=== PATIENT | female | born 1960 | race Caucasian/White ===

== ENCOUNTER 2022-08-01 06:44 | Outpatient (REF) | payer OTHER, SELFPAY ==
[2022-08-01 11:41] LABS: MANUAL DIFF FLAG NO
[2022-08-01 11:51] LABS: Basophils Absolute Auto 0.1 X10*3/uL (0.0-0.2); Basophils Percent Auto 0.7 % (0-2); Eosinophils Absolute Auto 0.1 X10*3/uL (0.0-0.4); Eosinophils Percent Auto 1.9 % (0-4); Hematocrit 43.7 % (37.0-47.0); Hemoglobin 14.3 g/dl (12.0-16.0); Imm Gran Abs Auto 0.02 X10*3/uL (0.00-0.03); Imm Gran Pct Auto 0.3 % (0.0-0.4); Lymphocytes Absolute Auto 2.4 X10*3/uL (1.2-4.9); Lymphocytes Percent Auto 36.3 % (20-40); Mean Corpuscular HGB Conc 32.7 g/dl (31.0-35.0); Mean Corpuscular Hemoglobin 30.8 pg (27.0-33.0); Mean Platelet Volume 11.1 fL (9.4-12.3); Monocytes Absolute Auto 0.6 X10*3/uL (0.1-1.2); Monocytes Percent Auto 8.4 % (2-11); Neutrophils Absolute Auto 3.5 x10*3/uL (2.0-8.3); Neutrophils Percent Auto 52.4 % (45-73); Platelet Count 255 X10*3/uL (160-400); Red Blood Count 4.65 X10*6/uL (4.20-5.50); Red Cell Distribution Width 12.1 % (11.0-16.0); White Blood Count 6.7 X10*3/uL (4.8-10.8)
[2022-08-01 12:19] LABS: Alanine Aminotransferase 60 U/L (0-31); Albumin Level 4.2 g/dL (3.5-5.0); Alkaline Phosphatase 56 U/L (39-117); Anion Gap 10 (12-20); Aspartate Amino Transferase 41 U/L (5-31); Bilirubin Total 0.8 mg/dL (0.0-1.0); Blood Urea Nitrogen 16 mg/dL (9-16); Calcium 9.9 mg/dL (8.4-10.2); Carbon Dioxide 30 mmol/L (22-29); Chloride 105 mmol/L (96-108); Cholesterol 263 mg/dL; Estimated Glomerular Filt Rate > 60; Glucose Fasting 99 mg/dL (60-99); HDL Cholesterol 66 mg/dL; LDL Cholesterol Calculated 166 mg/dl; Potassium 4.2 mmol/L (3.3-5.1); Sodium 141 mmol/L (135-145); Triglycerides 155 mg/dL
[2022-08-01 12:38] LABS: TSH reflex Free T4 2.36 uIU/mL (0.32-4.0); Vitamin D 25-OH Total 25.6 ng/mL (>30)
== END 2022-08-01 06:45 | disposition home or self-care (01) ==
LOC: HO.HMGCLDS 06:44
PROVIDERS: PCP Internal Medicine; Visit Provider Internal Medicine
DX: Z00.00 Encounter for general adult medical examination without abnormal findings (principal); E55.9 Vitamin D deficiency, unspecified; K21.9 Gastro-esophageal reflux disease without esophagitis
CPT/HCPCS: 36415; 80053; 80061; 82306; 84443; 85025

== ENCOUNTER 2022-11-05 14:57 | Outpatient (AMB) | payer OTHER, SELFPAY ==
--- NOTE | 2022-11-05 15:04 | A.OFFVIS_ITS ---
Intake Vital Signs 11/05/22 15:05 Height 5 ft 9.5 in Weight 156 lb 8.451 oz BMI 22.8 BP 142/79 H Blood Pressure Location Lt brachial Position Sitting Pulse 73 Intake Visit Reasons: COLO screening Intake Note: Mary presents in the office as a colo screening. CC: Just due for a colonoscopy -- no concerns at this time. 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 female here today for pre c olonoscopy screening.? Patient was sent to us by her PCP.? Last colonoscopy in January of 2012. Normal colonoscopy no polyps. Patient denies any gastrointestinal symptoms in the past or at present.? Denies any personal or family history of gastrointestinal disease, colon polyps, or cancer.? Denies history of difficulty with sedation or anesthesia in the past.? Negative for history of sleep apnea.? Denies any history of cardiac, renal, pulmonary, or hepatic disease.? Elevated liver enzymes. PCP is sending patient for repeat blood work.? No history of infectious? diseases like hepatitis A, B, C, HIV or tuberculosis.? Patient is not on any anticoagulation therapy. [facility] Medical History (Updated 11/05/22 @ 15:37 by BENNIE Dixon) Hx of screening mammography Arm pain, right GERD (gastroesophageal reflux disease) Annual physical exam Normal pelvic exam Surgical History (Updated 11/05/22 @ 15:35 by BENNIE Dixon) Hx of colonoscopy Family History Father Hypertension Liver cancer Mother Hypertension Social History Housing: House Patient Tobacco Use Status: Former Tobacco user Quit Date: 1992 e-Cigarette/Vaping Use: Never Used service: No Current occupational status: employed Cognitive needs: No Hearing needs: No Vision needs: No Review of Systems Const Denies weight gain and Denies weight loss ENT Reports no additional complaints, Denies dysphagia and Denies odynophagia Card Reports no additional complaints Resp Reports no additional complaints GI Denies abdominal pain, Denies belching, Denies melena, Denies bloating, Denies change in bowel habits, Denies dysphagia, Denies excessive flatus, Denies dyspepsia, Denies heartburn, Denies diarrhea, Denies loose stools, Denies nausea, Denies odynophagia and Denies vomiting Musc Reports no additional complaints Neuro Reports no additional complaints Psych Reports no additional complaints Endo Reports no additional complaints Physical Exam Vital Signs: Last Vital Signs Pulse 73 11/05/22 15:05 BP 142/79 H 11/05/22 15:05 BMI result Body Mass Index 22.8 Const General: healthy appearing, no acute distress and well developed Nutritional Appearance: well nourished Orientation/consciousness: patient oriented x3 HEENT Head: Yes normal to inspection, Yes normocephalic and Yes atraumatic Face and sinus: Yes normal facial exam Mouth: Normal oral and palatal mucosa present Throat: Yes posterior oropharynx normal, Yes tonsils normal and Yes uvula midline Eyes General: appearance normal, both eyes and all related structures Neck Neck: Yes normal visual inspection, Yes full ROM and Yes trachea midline Thyroid: Thyroid normal Resp Effort & Inspection: normal respiratory effort, able to speak in complete sentences, no tracheal deviation and symmetric chest movement Auscultation: clear to auscultation bilaterally Cardio Rate: regular rate Heart sounds: S1 normal heart sound present and S2 normal heart sound present GI Inspection: Yes normal to inspection and No distended Palpation (GI): Soft to palpation, not firm, nontender and No hepatosplenomegaly present Auscultation: normal bowel sounds General: Yes no CVA tenderness Back/Spine/Pelvis Back: no CVA tenderness Skin General skin exam: elasticity normal, turgor normal and dry skin Neuro General: patient oriented x3 Psych Appearance: grossly normal Mental Status: mental status grossly normal Assessment & Plan Assessment & Plan (1) GERD (gastroesophageal reflux disease): Code(s): K21.9 - Gastro-esophageal reflux disease without esophagitis Qualifiers: Esophagitis presence: esophagitis presence not specified Qualified Code(s): K21.9 - Gastro-esophageal reflux disease without esophagitis Plan: Patient will avoid dietary triggers in late night snacking. Staying upright for minimum 3 hours after meals discussed with patient. (2) Transaminitis: Code(s): R74.01 - Elevation of levels of liver transaminase levels Plan: History of transaminitis, repeat blood work ordered for November. (3) Screen for colon cancer: Code(s): Z12.11 - Encounter for screening for malignant neoplasm of colon Plan: Patient denies any GI, cardiac or respiratory symptoms.? Denies any issues with anesthesia in the past.? Denies any history of sleep apnea.? No history infectious diseases in the past or present.? Not on any anticoagulation therapy.? No family or personal history of colon cancer or polyps.? Patient denies melena, hematochezia, unintentional weight loss or ribbon like stools.? Discussed at length the pre-procedure,? prep, diet & medications as well as what to expect prior, during and after the procedure.?? Stressed the importance of good bowel prep. ?Recommended the use of Vaseline or Calmoseptine OTC & baby wipes with bowel movements to promote comfort.? ?Patient verbalizes understanding and agrees to plan of care.? She was given the opportunity to ask questions and all questions answered.? We will see her after the procedure.? Medications: New bisacodyl (Dulcolax (bisacodyl)) take 2 tabs at noon the day before your colonoscopy 10 mg (2 x 5 mg) PO ONCE 1 day 2 tabs 0RF Z12.11 - Encounter for screening for malignant neoplasm of colon polyethylene glycol 3350 (Miralax) As directed by gastroenterology department at [facility] 238 grams PO ONCE 238 grams 0RF Z12.11 - Encounter for screening for malignant neoplasm of colon Coding Level of Care Code New Pt Level 3 (44159) Diagnoses Gastroesophageal reflux disease, unspecified whether esophagitis present K21.9 Esophagitis presence: esophagitis presence not specified Transaminitis R74.01 Screen for colon cancer Z12.11 Time Spent (min) 40 Comment 30 minutes spent with patient and additional 10 minutes spent reviewing her records
[2022-11-05 15:05] VITALS: BP 142/79; PULSE 73; BMI 22.8
== END 2022-11-05 15:36 | disposition home or self-care (01) ==
PROVIDERS: PCP Internal Medicine; Visit Provider Nurse Practitioner Family
DX: K21.9 Gastro-esophageal reflux disease without esophagitis (principal); R74.01 Elevation of levels of liver transaminase levels; Z12.11 Encounter for screening for malignant neoplasm of colon
CPT/HCPCS: 99203

== ENCOUNTER → 2022-11-05 14:57 | Outpatient (BNVA) | payer OTHER, SELFPAY | PROVIDERS: PCP Internal Medicine; Visit Provider Nurse Practitioner Family ==

== ENCOUNTER 2022-11-20 07:19 | Outpatient (REF) | payer OTHER, SELFPAY ==
[2022-11-20 12:01] LABS: Alanine Aminotransferase 29 U/L (0-31); Albumin Level 4.6 g/dL (3.5-5.0); Alkaline Phosphatase 50 U/L (39-117); Anion Gap 13 (12-20); Aspartate Amino Transferase 31 U/L (5-31); Bilirubin Total 0.6 mg/dL (0.0-1.0); Blood Urea Nitrogen 12 mg/dL (9-16); Calcium 10.1 mg/dL (8.4-10.2); Carbon Dioxide 29 mmol/L (22-29); Chloride 103 mmol/L (96-108); Cholesterol 227 mg/dL (<200); Estimated Glomerular Filt Rate > 60; Glucose Fasting 97 mg/dL (60-99); HDL Cholesterol 57 mg/dL (>40); LDL Cholesterol Calculated 138 mg/dL (<100); Potassium 3.9 mmol/L (3.3-5.1); Sodium 141 mmol/L (135-145); Total Protein 7.6 g/dL (6.5-8.0); Triglycerides 164 mg/dL (<150)
[2022-11-21 04:40] LABS: HBS Num1 0.14 mIU/mL (0-7.99); HBc Num1 0.27 S/CO (0.00-0.79); HBsAGNum1 0.29 S/CO (0.00-0.99); Hepatitis B Core Antibody Nonreactive (Nonreactive); Hepatitis B Surface Antigen Negative (Negative); ~HepC Num1 0.06 S/CO (0.00-0.79); ~Hepatitis B Surface Antibody NONREACTIVE (Nonreactive); ~Hepatitis C Antibody Nonreactive (Nonreactive)
== END 2022-11-20 07:20 | disposition home or self-care (01) ==
LOC: HO.HMGCLDS 07:19
PROVIDERS: PCP Internal Medicine; Visit Provider Internal Medicine
DX: E78.5 Hyperlipidemia, unspecified (principal)
CPT/HCPCS: 36415; 80053; 80061; 86704; 86706; 86803; 87340

== ENCOUNTER 2022-12-04 09:50 | Outpatient (AMB) | payer OTHER, SELFPAY ==
[2022-12-04 09:56] VITALS: BP 140/76; PULSE 92; O2SAT 98; BMI 22.3
--- NOTE | 2022-12-04 09:56 | MHC.PC.OV ---
Vital Signs 12/04/22 09:56 Height 5 ft 9.5 in Weight 153 lb BMI 22.3 BP 140/76 H Blood Pressure Location Lt brachial Position Sitting Pulse 92 Pulse Source Pulse Oximeter Pulse Oximetry (%) 98 Oxygen Delivery Method Room Air Intake Visit Reasons: 4m follow up Hyperlipidemia Intake Note: Pt is here today for 4 months follow up visit. Allergies No Known Allergies Allergy (Mild, Unverified 12/04/22 10:00) NKA Medication List - Last Reconciled 12/04/22 by Lizette Dinh MD bisacodyl (Dulcolax (bisacodyl)) 10 mg (2 x 5 mg) PO ONCE 1 day polyethylene glycol 3350 (Miralax) 238 grams PO ONCE Tobacco use date assessed: 12/04/22 Dental Screening Dental Screen Date: 12/04/22 Did you have a dental visit in the last 12 months?: Yes Did you have a dental problem in the last 6 months where you did not have access to dental care?: No Was dental information given to patient?: Patient has dentist HPI 4m follow up Hyperlipidemia HPI Details PATIENT PRESENTS FOR THE FOLLOW-UP OF HYPERLIPIDEMIA. SHE HAS BEEN EXERCISING AND LOST 10 LB SINCE THE LAST VISIT. [facility] Medical History (Updated 12/04/22 @ 10:52 by Lizette Dinh MD) Hx of screening mammography Arm pain, right GERD (gastroesophageal reflux disease) Annual physical exam Normal pelvic exam Surgical History (Updated 11/05/22 @ 15:35 by Ange Barrett [facility]) Hx of colonoscopy Family History Father Hypertension Liver cancer Mother Hypertension Social History Housing: House Patient Tobacco Use Status: Former Tobacco user Quit Date: 1992 e-Cigarette/Vaping Use: Never Used service: No Current occupational status: employed Cognitive needs: No Hearing needs: No Vision needs: No Questionnaire Thrive Questionnaire Date Thrive assessed: 08/05/22 AUDIT C Alcohol Use Questionnaire (AUDIT-C) 1. How often do you have a drink containing alcohol?: 2-3 times a week 2. How many drinks containing alcohol do you have on a typical day when you are drinking?: 3 or 4 3. How often do you have six or more drinks on one occasion?: Never Total Score: 4 YANA-7 AMB Questionnaire YANA-7 Date YANA - 7 assessed: 08/05/22 Source: Developed by Drs. Justin Ruiz, Shira Knox, Jamal Smith and colleagues, with an educational sara from [email or web address]. Review of Systems Const All systems reviewed & are unremarkable except as noted in HPI and below Reports no additional complaints Eyes Reports no additional complaints ENT Reports no additional complaints Card Reports no additional complaints Resp Reports no additional complaints GI Reports no additional complaints Physical exam (Primary Care) Vital Signs: Last Vital Signs Pulse 92 12/04/22 09:56 BP 140/76 H 12/04/22 09:56 Pulse Ox 98 12/04/22 09:56 Oxygen Delivery Method Room Air 12/04/22 09:56 BMI result Body Mass Index 22.3 Tobacco/Smoking Status: Tobacco use Status Tobacco use date assessed 12/04/22 12/04/22 10:01 Patient Tobacco Use Status Former Tobacco user 12/04/22 09:56 e-Cigarette/Vaping Use Never Used 12/04/22 09:56 Thrive Assessment: Date of Thrive Assessment Date Thrive assessed 08/05/22 12/04/22 09:56 Const General: no acute distress Neck Neck: Yes supple Resp Effort & Inspection: normal respiratory effort Auscultation: clear to auscultation bilaterally Cardio Rhythm: regular rhythm Heart sounds: S1 normal heart sound present and S2 normal heart sound present Assessment and Plan Assessment & Plan (1) Hyperlipidemia: Code(s): E78.5 - Hyperlipidemia, unspecified Plan: Continue low-cholesterol diet (2) Elevated BP without diagnosis of hypertension: Code(s): R03.0 - Elevated blood-pressure reading, without diagnosis of hypertension Plan: Low-sodium diet regular physical activity discussed with the patient, follow-up in 2 months for blood pressure check Orders: Orders Lipid Panel 2 Months E78.5 - Hyperlipidemia, unspecified Comprehensive Doss. Panel Fast 2 Months E78.5 - Hyperlipidemia, unspecified Coding Level of Care Code Est Pt Level 3 (66252) Diagnoses Hyperlipidemia E78.5 Elevated BP without diagnosis of hypertension R03.0
== END 2022-12-04 10:53 | disposition home or self-care (01) ==
PROVIDERS: PCP Internal Medicine; Visit Provider Internal Medicine
DX: E78.5 Hyperlipidemia, unspecified (principal); R03.0 Elevated blood-pressure reading, without diagnosis of hypertension
CPT/HCPCS: 99213

== ENCOUNTER 2023-01-02 09:23 | Outpatient (AMB) | payer OTHER, SELFPAY ==
[2023-01-02 09:27] VITALS: BP 130/70; BMI 21.7
--- NOTE | 2023-01-02 09:27 | MHC.OFFVIS ---
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 Clark here. She has no history of abnormal Pap smears she is not sexually active cuts her is disabled she has no concerns about STIs once in a while she has some vaginal itching at night but it is not severe and it is not present now. She is physically active and exercises and takes classes at the gym. She does wear leggings a lot. , she eats very well She does have multiple freckles and has had basal and squamous cancers on her skin and has regular surveillance and will be having a procedure for a squamous cell CA coming up. She gets regular mammograms and had her most recent mammogram this year and it was fine. She had history of endometrial ablation so she has not had a period in years and she is postmenopausal as well she eats really well and she recently lost some weight in order to bring her cholesterol down she is awaiting an appointment for colonoscopy for screening. Believes she gets enough calcium and vitamin-D in her life [facility] Medical History (Updated 01/02/23 @ 10:22 by Ofelia Littlejohn CNM) Hx of screening mammography Arm pain, right GERD (gastroesophageal reflux disease) Annual physical exam Normal pelvic exam Surgical History (Updated 01/02/23 @ 09:36 by VANDANA Howard) History of endometrial ablation Hx of colonoscopy Family History Father Hypertension Liver cancer Mother Hypertension Social History Housing: House Patient Tobacco Use Status: Former Tobacco user Quit Date: 1992 e-Cigarette/Vaping Use: Never Used service: No Current occupational status: employed Cognitive needs: No Hearing needs: No Vision needs: No Female Reproductive History Menstrual Age of Menarche: 14 control method: none Total pregnancies: 2 Full term: 1 Number of Living Children: 1 Ab spontaneous: 1 Date of last pap smear: 03/04/18 (negative) History of abnormal pap smear: Yes (2005 [facility]) Date of Mammogram: 04/24/21 Physical Exam Vital Signs: Last Vital Signs BP 130/70 01/02/23 09:27 BMI result Body Mass Index 21.7 Const General: healthy appearing, comfortable, no acute distress, well developed and alert Nutritional Appearance: average body habitus Orientation/consciousness: patient oriented x3 Limitations: no limitations HEENT Head: Yes normocephalic Neck Neck: Yes normal visual inspection Thyroid: Thyroid normal Chest Chest palpation & inspection: normal inspection of the chest Breast/axilla inspection: normal inspection of the breasts and normal inspection of the axillae Breast/axilla palpation: normal palpation of the breasts and normal palpation of the axillae Resp Effort & Inspection: normal respiratory effort GI Inspection: Yes normal to inspection, No Abdominal wall edema and No distended Palpation (GI): Soft to palpation and nontender Other: Normal regulatory compliance specialist speculum exam consistent with postmenopausal changes vagina moist atrophic cervix parous tightly closed pink and healthy nontender mobile uterus midposition to anteverted nontender mobile adnexa nontender good tone with Kegel General: Yes bladder normal to palpation External Female Exam: normal external appearance and normal appearance of the urethra Speculum Exam - Vagina: normal appearance of the vagina, normal palpation and normal vaginal discharge Speculum Exam - Cervix: normal appearance of the cervix, normal palpation and nontender Bimanual exam- vagina & uterus: normal bimanual exam, normal palpation, uterine size normal, bladder normal to palpation, consistency normal, normal palpation, uterine mobility normal, uterine shape normal, No Cervical tenderness present, non-tender and no cervical motion tenderness Bimanual Exam- Adnexa, other: normal adnexae, no masses, normal and No adnexal tenderness Skin Other: Multiple freckles all over, has history of squamous and basal cell CA and keeps her skin under careful surveillance... Neuro General: patient oriented x3 Assessment & Plan Assessment & Plan (1) Hx of screening mammography: Comment: [facility] 2021, states she had 1 this year 2022 all normal gets them yearly.... Code(s): Z92.89 - Personal history of other medical treatment (2) Well woman exam with routine gynecological exam: Code(s): Z01.419 - Encounter for gynecological examination (general) (routine) without abnormal findings (3) Cervical cancer screening: Comment: Cites no history of abnormals ever last Pap done February of 2019 19- with negative HPV. Pap done 01/02/2023 with Co testing. discussed that screening stops after age 65. Code(s): Z12.4 - Encounter for screening for malignant neoplasm of cervix (4) Postmenopausal: Code(s): Z78.0 - Asymptomatic menopausal state Plan -----Discussed in this visit the following: healthy balanced diet, regular and consistent exercise, getting recommended health screens, doing the best she can for her particular health concerns, kegel exercises, pap smear screening and followup recommendations, mammography screening and SBE, normal changes in cycles in her life stage--- . Applauded her excellent self-care. Discussed vaginal symptoms and vaginal atrophy and what the realities are about that and also that sometimes wearing like her or Spandex clothing for little bit too long can promote vaginal itching and increase bacteria or yeast and she declined testing and it appeared very normal but a simple treatment is to just change out of the leggings at the very for sign of any symptoms & rinse with cool water. Coding Level of Care Code New Pt Prev Care 40-64y(25797) Diagnoses Hx of screening mammography Z92.89 Well woman exam with routine gynecological exam Z01.419 Cervical cancer screening Z12.4 Postmenopausal Z78.0
== END 2023-01-02 10:16 | disposition home or self-care (01) ==
PROVIDERS: PCP Internal Medicine; Visit Provider Advanced Practice Midwife
DX: Z01.419 Encounter for gynecological examination (general) (routine) without abnormal findings (principal); Z78.0 Asymptomatic menopausal state; Z92.89 Personal history of other medical treatment
CPT/HCPCS: 99386

== ENCOUNTER 2023-01-02 09:23 | Outpatient (REF) | payer OTHER, SELFPAY ==
[2023-01-06 11:59] LABS: HPV mRNA E6/E7 rflx Not Detected (Not Detected)
== END 2023-01-02 09:24 | disposition home or self-care (01) ==
LOC: HO.LNP 09:23
PROVIDERS: PCP Internal Medicine; Visit Provider Advanced Practice Midwife
DX: Z01.419 Encounter for gynecological examination (general) (routine) without abnormal findings (principal); Z11.51 Encounter for screening for human papillomavirus (HPV)
CPT/HCPCS: 87624; 88142

== ENCOUNTER 2023-08-08 08:06 | Outpatient (REF) | payer OTHER, SELFPAY ==
[2023-08-08 11:10] LABS: Alanine Aminotransferase 27 U/L (0-31); Albumin Level 4.6 g/dL (3.5-5.0); Alkaline Phosphatase 59 U/L (39-117); Anion Gap 11 (12-20); Aspartate Amino Transferase 26 U/L (5-31); Bilirubin Total 0.6 mg/dL (0.0-1.0); Blood Urea Nitrogen 15 mg/dL (9-16); Calcium 9.3 mg/dL (8.4-10.2); Carbon Dioxide 30 mmol/L (22-29); Chloride 103 mmol/L (96-108); Cholesterol 265 mg/dL (<200); Estimated Glomerular Filt Rate > 60; Glucose Fasting 99 mg/dL (60-99); HDL Cholesterol 77 mg/dL (>40); LDL Cholesterol Calculated 169 mg/dL (<100); Potassium 4.1 mmol/L (3.3-5.1); Sodium 140 mmol/L (135-145); Total Protein 7.5 g/dL (6.5-8.0); Triglycerides 98 mg/dL (<150)
== END 2023-08-08 08:07 | disposition home or self-care (01) ==
LOC: HO.HMGCLDS 08:06
PROVIDERS: PCP Internal Medicine; Visit Provider Internal Medicine
DX: E78.5 Hyperlipidemia, unspecified (principal)
CPT/HCPCS: 36415; 80053; 80061

== ENCOUNTER 2023-09-18 07:31 | Outpatient (AMB) | payer OTHER, SELFPAY ==
[2023-09-18 07:33] VITALS: BP 126/82; PULSE 71; O2SAT 96; BMI 22.4
--- NOTE | 2023-09-18 07:33 | A.OFFPC_ITS ---
Vital Signs 09/18/23 07:33 Height 5 ft 9.5 in Weight 154 lb BMI 22.4 BP 126/82 Blood Pressure Location Rt brachial Position Sitting Pulse 71 Pulse Source Pulse Oximeter Pulse Oximetry (%) 96 Oxygen Delivery Method Room Air Intake Visit Reasons: Annual PE Intake Note: Pt is here today for PE. Allergies No Known Allergies Allergy (Mild, Verified 09/18/23 07:36) NKA Medication List - Last Reconciled 09/18/23 by Lizette Dinh MD bisacodyl (Dulcolax (bisacodyl)) 10 mg (2 x 5 mg) PO ONCE 1 day polyethylene glycol 3350 (Miralax) 238 grams PO ONCE pravastatin 40 mg PO DAILY Tobacco use date assessed: 09/18/23 Dental Screening Dental Screen Date: 09/18/23 Did you have a dental visit in the last 12 months?: Yes Did you have a dental problem in the last 6 months where you did not have access to dental care?: No Was dental information given to patient?: Patient has dentist HPI Annual PE HPI Details Pt presents for PE. PATIENT HAS BEEN TAKING PRAVASTATIN FOR HYPERLIPIDEMIA AND TOLERATING IT WELL. [facility] Medical History Hx of screening mammography Arm pain, right GERD (gastroesophageal reflux disease) Annual physical exam Normal pelvic exam Surgical History History of endometrial ablation Hx of colonoscopy Family History Father Hypertension Liver cancer Mother Hypertension Social History Housing: House Patient Tobacco Use Status: Former Tobacco user e-Cigarette/Vaping Use: Never Used service: No Current occupational status: employed Cognitive needs: No Hearing needs: No Vision needs: No Female Reproductive History Menstrual Age of Menarche: 14 Questionnaire PHQ-9 Over the last 2 weeks, how often have you been bothered by any of the following problems? 1. Little interest or pleasure in doing things: not at all 2. Feeling down, depressed, or hopeless: not at all 3. Trouble falling or staying asleep, or sleeping too much: not at all 4. Feeling tired or having little energy: not at all 5. Poor appetite or overeating: not at all 6. Feeling bad about yourself - or that you are a failure or have let yourself or your family down: not at all 7. Trouble concentrating on things, such as reading the newspaper or watching television: not at all 8. Moving or speaking so slowly that other people could have noticed. Or the opposite - being so fidgety or restless that you have been moving around a lot more than usual: not at all 9. Thoughts that you would be better off or of hurting yourself in some way: not at all Total score: 0 Depression Screening Interpretation: Negative Depression Screening Done: Yes Source: Developed by Drs. Justin Ruiz, Shira Knox, Jamal Smith and colleagues, with an educational sara from [employer]. Thrive Questionnaire Date Thrive assessed: 09/18/23 What is your living situation today?: I have a steady place to live Within the past 12 months, did the food you bought not last and you didn't have the money to get more?: Never true Within the past 12 months, did you worry whether your food would run out before you got money to buy more?: Never true Do you have trouble paying for medicines?: No Do you have trouble getting transportation to medical appointments?: No Do you have trouble paying your heating and electricity bill?: No Do you have trouble taking care of your child, family member or friend?: No Do you have trouble with day-to-day activities such as bathing, preparing meals, shopping, managing finances, etc.?: No Are you currently unemployed and looking for a job?: No Are you interested in more education?: No Please select the resources that you would like help with: Housing/Fpc Currently or been in a relationship where the following occur: No concerns reported THRIVE Score: 0 AUDIT C Alcohol Use Questionnaire (AUDIT-C) 1. How often do you have a drink containing alcohol?: 2-3 times a week 2. How many drinks containing alcohol do you have on a typical day when you are drinking?: 3 or 4 3. How often do you have six or more drinks on one occasion?: Never Total Score: 4 YANA-7 AMB Questionnaire YANA-7 Date YANA - 7 assessed: 09/18/23 Feeling nervous, anxious, or on edge: 0 = Not at all Not being able to stop or control worryin = Not at all Worrying too much about different things: 0 = Not at all Trouble relaxin = Not at all Being so restless that it is hard to sit still: 0 = Not at all Becoming easily annoyed or irritable: 0 = Not at all Feeling afraid as if something awful might happen: 0 = Not at all Total YANA-7 score (0-4 normal; 5-9 mild; 10-14 moderate; 15-21 severe): 0 Source: Developed by Drs. Justin Ruiz, Shira Knox, Jamal Smith and colleagues, with an educational sara from [employer]. Review of Systems Const All systems reviewed & are unremarkable except as noted in HPI and below Reports no additional complaints Eyes Reports no additional complaints ENT Reports no additional complaints Card Reports no additional complaints Resp Reports no additional complaints GI Reports no additional complaints Reports no additional complaints Physical exam (Primary Care) Vital Signs: Last Vital Signs Pulse 71 09/18/23 07:33 BP 126/82 09/18/23 07:33 Pulse Ox 96 09/18/23 07:33 Oxygen Delivery Method Room Air 09/18/23 07:33 BMI result Body Mass Index 22.4 Tobacco/Smoking Status: Tobacco use Status Tobacco use date assessed 09/18/23 09/18/23 07:39 Patient Tobacco Use Status Former Tobacco user 09/18/23 07:39 e-Cigarette/Vaping Use Never Used 09/18/23 07:39 PHQ-9: PHQ-9 Score PHQ-9: Total score 0 09/18/23 07:39 Depression Screening Interpretation: Negative Thrive Assessment: Date of Thrive Assessment Date Thrive assessed 09/18/23 09/18/23 07:39 Currently or been in a relationship where the following occur: No concerns reported Const General: no acute distress HENMT Ears: hearing grossly normal bilaterally General nose exam: Normal external nose present Face and sinus: Yes normal facial exam Mouth: Normal oral and palatal mucosa present Throat: Yes posterior oropharynx normal Eyes General: appearance normal, both eyes and all related structures Neck Neck: Yes no lymphadenopathy and Yes supple Resp Effort & Inspection: normal respiratory effort Auscultation: clear to auscultation bilaterally Cardio Rhythm: regular rhythm Heart sounds: S1 normal heart sound present and S2 normal heart sound present GI Inspection: Yes normal to inspection Palpation (GI): Soft to palpation Percussion: Yes normal to percussion Auscultation: normal bowel sounds Assessment and Plan Assessment & Plan (1) Hyperlipidemia: Code(s): E78.5 - Hyperlipidemia, unspecified Plan: cont Pravastatin, check lipiid profile in 2 months (2) Annual physical exam: Code(s): Z00.00 - Encounter for general adult medical examination without abnormal findings Plan: well balanced diet, regular exercise, pt is up to date with mammogram and will call GI to schedule colonoscopy Orders: Orders Lipid Panel 2 Months E78.5 - Hyperlipidemia, unspecified, Z00.00 - Encounter for general adult medical examination without abnormal findings Comprehensive Met. Panel 2 Months E78.5 - Hyperlipidemia, unspecified, Z00.00 - Encounter for general adult medical examination without abnormal findings Coding Level of Care Code Est Pt Prev Care 40-64y(17480) Diagnoses Hyperlipidemia E78.5 Annual physical exam Z00.00
== END 2023-09-18 08:18 | disposition home or self-care (01) ==
PROVIDERS: PCP Internal Medicine; Visit Provider Internal Medicine
DX: E78.5 Hyperlipidemia, unspecified (principal); Z00.00 Encounter for general adult medical examination without abnormal findings
CPT/HCPCS: 99396

== ENCOUNTER 2024-01-06 11:17 | Outpatient (AMB) | payer OTHER, SELFPAY ==
[2024-01-06 11:35] VITALS: BP 130/74; BMI 23.3
--- NOTE | 2024-01-06 11:35 | A.OFFVIS_ITS ---
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 She has a government service executive who she sees for her multiple freckles from sun exposure. She has a primary care provider and it was a waiting list for colonoscopies last year. She has regular mammograms. [facility] Medical History Hx of screening mammography Arm pain, right GERD (gastroesophageal reflux disease) Annual physical exam Normal pelvic exam Surgical History History of endometrial ablation Hx of colonoscopy Family History Father Hypertension Liver cancer Mother Hypertension Social History Housing: House Patient Tobacco Use Status: Former Tobacco user e-Cigarette/Vaping Use: Never Used service: No Current occupational status: employed Cognitive needs: No Hearing needs: No Vision needs: No Female Reproductive History Menstrual Age of Menarche: 14 control method: none Total pregnancies: 2 Full term: 1 Date of last pap smear: 01/02/23 (negative,2019,WNL) Physical Exam Vital Signs: Last Vital Signs BP 130/74 01/06/24 11:35 BMI result Body Mass Index 23.3 Const General: healthy appearing, comfortable, no acute distress, well developed and alert Nutritional Appearance: average body habitus Orientation/consciousness: patient oriented x3 Limitations: no limitations HEENT Head: Yes normocephalic Neck Neck: Yes normal visual inspection Chest Chest palpation & inspection: normal inspection of the chest Breast/axilla inspection: normal inspection of the breasts and normal inspection of the axillae Breast/axilla palpation: normal palpation of the breasts and normal palpation of the axillae Resp Effort & Inspection: normal respiratory effort GI Inspection: Yes normal to inspection, No Abdominal wall edema and No distended Palpation (GI): Soft to palpation and nontender Other: External exam within normal limits vagina postmenopausal atrophic changes noted very thin fragile mucosa bled easily with stretching from speculum cervix postmenopausally small mobile nontender uterus small mobile nontender adnexa nontender good muscle tone w Kegel. General: Yes bladder normal to palpation External Female Exam: normal external appearance and normal appearance of the urethra Speculum Exam - Vagina: normal appearance of the vagina, normal palpation and normal vaginal discharge Speculum Exam - Cervix: normal appearance of the cervix, normal palpation and nontender Bimanual exam- vagina & uterus: normal bimanual exam, normal palpation, uterine size normal, bladder normal to palpation, consistency normal, normal palpation, uterine mobility normal, uterine shape normal, No Cervical tenderness present, non-tender and no cervical motion tenderness Bimanual Exam- Adnexa, other: normal adnexae, no masses, normal and No adnexal tenderness Neuro General: patient oriented x3 Assessment & Plan Assessment & Plan (1) Postmenopausal: Code(s): Z78.0 - Asymptomatic menopausal state Category: Medical (2) Cervical cancer screening: Comment: Cites no history of abnormals ever last Pap done February of 2019 19- with negative HPV. Pap done 01/02/2023 with Co testing= negative with negative HPV atrophic. discussed that screening stops after age 65. Code(s): Z12.4 - Encounter for screening for malignant neoplasm of cervix Category: Medical (3) Well woman exam with routine gynecological exam: Code(s): Z01.419 - Encounter for gynecological examination (general) (routine) without abnormal findings Category: Medical (4) Rectal itching: Code(s): L29.0 - Pruritus ani Category: Medical Plan -----Discussed in this visit the following: healthy balanced diet, regular and consistent exercise, getting recommended health screens, doing the best she can for her particular health concerns, kegel exercises, pap smear screening and followup recommendations, mammography screening and SBE, normal changes in cycles in her life stage--- . See HPI she is up-to-date with all of her care providers and screening recommendations and is awaiting some others. She has a government service executive and there was plan to address sun damage. Discussed the rectal itching which is occasional. She was reluctant to accept a prescription for clotrimazole betamethasone but is fine with the possibility of p.r.n. minimal use of [id number] Monistat or clotrimazole a tiny dab and a tiny dab of 1% hydrocortisone cream both [id number]. She is up-to-date on her Pap smears and her last 1 was negative so she may not ever need another Pap smear at this stage. She is up-to-date with her mammograms as well. Coding Level of Care Code Est Pt Prev Care 40-64y(37996) Diagnoses Postmenopausal Z78.0 Cervical cancer screening Z12.4 Well woman exam with routine gynecological exam Z01.419 Rectal itching L29.0
== END 2024-01-06 13:04 | disposition home or self-care (01) ==
PROVIDERS: PCP Internal Medicine; Visit Provider Advanced Practice Midwife
DX: Z01.419 Encounter for gynecological examination (general) (routine) without abnormal findings (principal); Z78.0 Asymptomatic menopausal state; Z12.4 Encounter for screening for malignant neoplasm of cervix; L29.0 Pruritus ani
CPT/HCPCS: 99396

== ENCOUNTER → 2024-01-06 11:17 | Outpatient (BNVA) | payer OTHER, SELFPAY | PROVIDERS: PCP Internal Medicine; Visit Provider Advanced Practice Midwife ==

== ENCOUNTER 2024-04-21 07:02 | Outpatient (REF) | payer OTHER, SELFPAY ==
[2024-04-21 07:17] LABS: MANUAL DIFF FLAG NO
[2024-04-21 07:52] LABS: Basophils Percent Auto 0.7 % (0-2); Eosinophils Absolute Auto 0.1 X10*3/uL (0.0-0.4); Eosinophils Percent Auto 1.5 % (0-4); Hematocrit 43.6 % (37.0-47.0); Hemoglobin 14.2 g/dl (12.0-16.0); Imm Gran Abs Auto 0.01 X10*3/uL (0.00-0.03); Imm Gran Pct Auto 0.2 % (0.0-0.4); Lymphocytes Absolute Auto 1.8 X10*3/uL (1.2-4.9); Lymphocytes Percent Auto 30.1 % (20-40); Mean Corpuscular HGB Conc 32.6 g/dl (31.0-35.0); Mean Corpuscular Hemoglobin 29.9 pg (27.0-33.0); Mean Corpuscular Volume 91.8 fL (80.0-98.0); Mean Platelet Volume 10.6 fL (9.4-12.3); Monocytes Absolute Auto 0.5 X10*3/uL (0.1-1.2); Monocytes Percent Auto 8.9 % (2-11); Neutrophils Absolute Auto 3.4 x10*3/uL (2.0-8.3); Neutrophils Percent Auto 58.6 % (45-73); Platelet Count 242 X10*3/uL (160-400); Red Blood Count 4.75 X10*6/uL (4.20-5.50); Red Cell Distribution Width 12.1 % (11.0-16.0); White Blood Count 5.8 X10*3/uL (4.8-10.8)
[2024-04-21 08:23] LABS: Alanine Aminotransferase 38 U/L (0-31); Albumin Level 4.3 g/dL (3.5-5.0); Alkaline Phosphatase 57 U/L (39-117); Anion Gap 13 (12-20); Aspartate Amino Transferase 33 U/L (5-31); Bilirubin Total 0.6 mg/dL (0.0-1.0); Blood Urea Nitrogen 18 mg/dL (9-16); Calcium 9.3 mg/dL (8.4-10.2); Carbon Dioxide 28 mmol/L (22-29); Chloride 106 mmol/L (96-108); Cholesterol 194 mg/dL (<200); Estimated Glomerular Filt Rate > 60; Glucose Fasting 95 mg/dL (60-99); HDL Cholesterol 71 mg/dL (>40); LDL Cholesterol Calculated 107 mg/dL (<100); Potassium 4.4 mmol/L (3.3-5.1); Sodium 143 mmol/L (135-145); Total Protein 7.6 g/dL (6.5-8.0); Triglycerides 83 mg/dL (<150)
[2024-04-21 09:01] LABS: TSH reflex Free T4 1.67 uIU/mL (0.32-4.0)
== END 2024-04-21 07:03 | disposition home or self-care (01) ==
LOC: HO.LAB 07:02
PROVIDERS: PCP Internal Medicine; Visit Provider Internal Medicine
DX: Z00.00 Encounter for general adult medical examination without abnormal findings (principal); E78.5 Hyperlipidemia, unspecified
CPT/HCPCS: 36415; 80053; 80061; 84443; 85025

== ENCOUNTER 2025-01-12 12:13 | Outpatient (AMB) | payer OTHER, SELFPAY ==
--- OUTSIDE RECORDS SUMMARY | 2023-11-07 09:47 | XMS_ITS | Encounter Summary ---
Author Organization [facility] Address [address] [place] [id number] Phone Care Team Providers Care Aoc Plans Intelligence Officer Chief Name Role Phone Lizette Dinh MD Primary Care Provider [phone] Encounter Details Date Type Department Care Team (Late st Contact Info) Description 11/07/2023 10:47 AM EDT Hospital Encounter [facility] [address] [place] [id number] Hina Sibley CNP [address] [place] [address] Social History Tobacco Use Types Packs/Day Years Used Date Smoking Tobacco: Former Cigarettes Smokeless Tobacco: Never Education Answer Date Recorded Are you interested in more education? Not on gisele e 11/07/2023 Are you concerned about learning? Not on file 11/07/2023 No 11/07/2023 No 11/07/2023 Digital Access Answer Date Recorded No 11/07/2023 No 11/07/2023 Reliable internet access at home? Not on file 11/07/2023 Device with a working camera? Not on file Comments Unknown Sex and Gender Information Value Date Recorded Sex Assigned at Not on file Legal Sex Female 9:54 AM EDT Gender Identity Not on file Sexual Orientation Not on file documented as of this encounter Plan of Treatment Not on file documented as of this encounter Procedures Procedure Name Priority Date/Time Associated Diagnosis Comments XR FOOT 3 OR MORE VIEWS (RIGHT) Urgent/patient waiting 11/07/2023 10:52 AM EDT Right foot pain documented in this encounter Results * XR FOOT 3 OR MORE VIEWS (RIGHT) (11/07/2023 10:52 AM EDT) Anatomical Region Laterality Modality Foot Right Computed Radiogr aphy 11/07/2023 11:5 3 AM EDT Impressions 11/07/2023 12:05 PM EDT Tiny bony fragment seen anterior to the distal tibia could represent an avulsion fracture. Soft tissue swelling the dorsal foot and ankle. ATTESTATION: Kelsey Mckeon as teaching physician, have reviewed the images for this case and if necessary edited the report originally created by Nestor Sutherland. Narrative 11/07/2023 12:05 PM EDT XR FOOT 3 OR MORE VIEWS (RIGHT) Referring clinician's provided indication for this examination in [facility]: Pain; Trauma; painful lump top right foot s/p injury 3 weeks ago. COMPARISON: None. FINDINGS: Tiny bony fragment seen anterior to the distal tibia. Normal alignment. Degenerative changes of the first MTP joint. Soft tissue swelling of the dorsum of the foot and ankle joint. Small plantar calcaneal spur. Procedure Note Kelsey Wang MD - 11/07/2023 XR FOOT 3 OR MORE VIEWS (RIGHT) Referring clinician's provided indication for this examination in [facility]:Pain; Trauma; painful lump top right foot s/p injury 3 weeks ago. COMPARISON: None. FINDINGS: Tiny bony fragment seen anterior to the distal tibia. Normal alignment.Degenerative changes of the first MTP joint. Soft tissue swelling of thedorsum of the foot and ankle joint. Small plantar calcaneal spur. IMPRESSION: Tiny bony fragment seen anterior to the distal tibia could represent anavulsion fracture. Soft tissue swelling the dorsal foot and ankle. ATTESTATION: Kelsey Mckeon as teaching physician, have reviewed theimages for this case and if necessary edited the report originally createdby Nestor Sutherland. Hina Sibley WELD FITTER IMG XR LOWER EXTREMITY Danelle l Result documented in this encounter Visit Diagnoses Not on filedocumented in this encounter Care Teams Aoc Plans Intelligence Officer Chief Relationship Specialty Start Date End Date Lizette Dinh MD [facility] [place] [address] PCP - General Internal Medicine 11/07/23 documented as of this encounter Additional Source Comments The information contained in this document represents components of the legal health record. It is not the complete legal health record.[facility]
[2025-01-12 12:29] VITALS: BP 158/90; PULSE 74; O2SAT 96; BMI 23.8
--- NOTE | 2025-01-12 12:29 | AM.OFFWIN_ITS ---
Intake Vital Signs 01/12/25 12:29 01/12/25 12:33 Height 5 ft 9 in Weight 161 lb BMI 23.8 BP 158/90 H 144/98 H Blood Pressure Location Rt brachial Lt brachial Position Sitting Sitting Pulse 74 Pulse Source Pulse Oximeter Pulse Oximetry (%) 96 Oxygen Delivery Method Room Air Intake Visit Reasons: EP High BP 156/100 Intake Note: Patient presents c/o elevated BP x past couple months. Patient Tobacco Use Status: Former Tobacco user Allergies No Known Allergies Allergy (Mild, Verified 01/12/25 12:31) NKA Medication List - Last Reconciled 01/12/25 by Jeny Araya MD hydrochlorothiazide 12.5 mg PO DAILY pravastatin 40 mg PO DAILY HPI EP High BP 156/100 HPI Details History of Present Illness The patient is a 64-year-old female presenting for evaluation of high blood pressure. Essential Hypertension: - The patient reports a history of high blood pressure in her 40s, which was previously managed with medication, although she does not recall the name of the medication. - She was able to control her blood pres sure at that time with exercise and a low-sodium diet. - She monitors her blood pressure at [facility] and noted a recent reading of 156/100 mmHg yesterday. - Previous readings in December were in the prehypertensive range, around 130 mmHg and one was 126 mmHg. - She denies any history of gout or know n drug allergies. - Labs from March showed normal kidne y function. Social History: - Tobacco use: Denies smoking. - Alcohol use: Reports occasional alcoho l consumption. - Diet: Acknowledges high salt intake. Problem List - Essential Hypertension Plan - A prescription for hydrochlorothiazide 12.5 mg was sent to the pharmacy. - The patient was instructed to double t he dose to 25 mg if her blood pressure continues to be elevated above 140 mmHg. - The patient was counseled on dietary m odifications, specifically to reduce added salt intake. - The patient was advised to schedule a follow-up appointment with her primary doctor. Review of Systems - General: No fever no chills - Neurological: No headaches no dizziness - Ear nose throat: No sore throat no hearing difficulty no ear pain - Cardiovascular: No syncope, no chest pain, no palpitations - Gastrointestinal: No nausea vomiting or diarrhea Physical Exam General: No acute distress HEENT: No acute findings Neck: Supple Respiratory system: Able to talk in full sentences, no audible wheeze Cardiovascular: S1-S2 regular in rate and rhythm, pulse regular Gastrointestinal: No pain Extremities: No new findings, no swelling of ankles INFERTILITY NURSE: Alert awake oriented x3 motor intact Skin: Normal turgor PFSH Medical History Hx of screening mammography Arm pain, right GERD (gastroesophageal reflux disease) Annual physical exam Normal pelvic exam Surgical History History of endometrial ablation Hx of colonoscopy Family History Father Hypertension Liver cancer Mother Hypertension Social History Housing: House Patient Tobacco Use Status: Former Tobacco user e-Cigarette/Vaping Use: Never Used service: No Current occupational status: employed Cognitive needs: No Hearing needs: No Vision needs: No Female Reproductive History Menstrual Age of Menarche: 14 Physical Exam Vital Signs: Last Vital Signs Pulse 74 01/12/25 12:29 BP 144/98 H 01/12/25 12:33 Pulse Ox 96 01/12/25 12:29 Oxygen Delivery Method Room Air 01/12/25 12:29 BMI result Body Mass Index 23.8 Assessment & Plan Assessment & Plan (1) Hypertension, essential: Code(s): I10 - Essential (primary) hypertension Plan Essential Hypertension: - The patient reports a history of high blood pressure in her 40s, which was previously managed with medication, although she does not recall the name of the medication. - She was able to control her blood pressure at that time with exercise and a low-sodium diet. - She monitors her blood pressure at home and noted a recent reading of 156/100 mmHg yesterday. - Previous readings in December were in the prehypertensive range, around 130 mmHg and one was 126 mmHg. - She denies any history of gout or known drug allergies. - Labs from March showed normal kidney function. Social History: - Tobacco use: Denies smoking. - Alcohol use: Reports occasional alcohol consumption. - Diet: Acknowledges high salt intake. Problem List - Essential Hypertension Plan - A prescription for hydrochlorothiazide 12.5 mg was sent to the pharmacy. - The patient was instructed to double the dose to 25 mg if her blood pressure continues to be elevated above 140 mmHg. - The patient was counseled on dietary modifications, specifically to reduce added salt intake. - The patient was advised to schedule a follow-up appointment with her primary doctor. Medications: New hydrochlorothiazide 12.5 mg PO DAILY 30 tabs 0RF Coding Level of Care Code Est Pt Level 3 (64927) Diagnoses Hypertension, essential I10
[2025-01-12 12:33] VITALS: BP 144/98
--- OUTSIDE RECORDS SUMMARY | 2025-01-12 23:19 | XMS_ITS | Clinical Summary ---
Author Organization [facility] Address [address] [place] [phone] Phone Care Team Providers Care Parachute Taper Name Role Phone Lizette Dinh MD Primary Care Provider [phone] Allergies No known active allergies Medications pravastatin (PRAVACHOL) 40 MG tablet Take 1 tablet by mouth every morning. 4 Active naproxen (NAPROSYN) 500 MG tablet Take 1 tablet (500 mg total) by mouth 2 (two) times a day for 3 days. Then twice daily as needed for pain, inflammation 20 tablet 5 Active cyclobenzaprine (FLEXERIL) 10 MG tablet Take 1 tablet (10 mg total) by mouth 3 (three) times a day as needed (muscle). 15 tablet 5 Active Active Problems No known active problems Social History Tobacco Use Types Packs/Day Years [...] on file Sexual Orientation Not on file Last Filed Vital Signs Vital Sign Reading Time Taken Comments Blood Pressure 152/80 07/26/2024 8:54 AM EDT Pulse 74 07/26/2024 8:54 AM EDT Temperature 36.7 C (98 F) 07/26/2024 8:54 AM EDT Respiratory Rate 16 07/26/2024 8:54 AM EDT Oxygen Saturation 97% 07/26/2024 8:54 AM EDT Inhaled Oxygen Concentration - - Weight 72.6 kg (160 lb) 07/26/2024 8:54 AM EDT Height 175.3 cm (5' 9 ) 07/26/2024 8:54 AM EDT Body Mass Index 23.63 07/26/2024 8:54 AM EDT Plan of Treatment Health Maintenance Due Date Last Done Comments Adult Td,Tdap Booster 1960 LIPID PANEL 1960 DEPRESSION SCREENING 1972 SMOKING Hx and SMOKELESS TOB ACCO SCREENING 01/30/1973 HEPATITIS C SCREENING 01/30/1978 HIV ONE-TIME SCREENING (18-6 5 YEARS) 01/30/1978 PAP SMEAR 01/30/1981 MAMMOGRAM 2000 COLOGUARD 01/30/2005 COLONOSCOPY 01/30/2005 COLORECTAL CANCER SCREENING 01/30/2005 FIT TEST 01/30/2005 FOBT 01/30/2005 SIGMOIDOSCOPY 01/30/2005 VIRTUAL COLONOSCOPY 01/30/2005 PNEUMOCOCCAL VACCINES (50+ y ears) (1 of 1 - PCV) 01/30/2010 ZOSTER VACCINES (1 of 2) 01/30/2010 INFLUENZA VACCINE (#1) 2024 COVID-19 VACCINE (1 - 2024-2 6 season) 2024 RSV VACCINE (1 - 1-dose 75+ series) 01/30/2035 HEPATITIS A VACCINES Aged Out No long er eligible based on patient's age to complete this topic HIB VACCINES Aged Out No longer eligi ble based on patient's age to complete this topic IPV VACCINES Aged Out No longer eligi ble based on patient's age to complete this topic MENINGOCOCCAL VACCINES (ACWY) Aged Out No longer eligible based on patient's age to complete this topic MENINGOCOCCAL VACCINES (B) Aged Out N o longer eligible based on patient's age to complete this topic Medical Devices Not on file Insurance HMO O O O O O Care Teams Parachute Taper Relationship Specialty Start Date End Date Lizette Dinh MD [address] [place] [address] PCP - General Internal Medicine 11/07/23 Additional Source Comments The information contained in this document represents components of the legal health record. It is not the complete legal health record.[facility]
== END 2025-01-12 12:42 | disposition home or self-care (01) ==
PROVIDERS: PCP Internal Medicine; Visit Provider Internal Medicine
DX: I10 Essential (primary) hypertension (principal)